=== PATIENT | female | born 1950 | race Caucasian/White ===

== ENCOUNTER 2017-03-30 13:52 | Emergency (ER) | payer OTHER ==
--- NOTE | 2017-03-30 14:18 | PDOC ---
History of Present Illness - General History Source: Patient Exam Limitations: No Limitations - History of Present Illness Initial Comments: 03/30/17 14:25 The patient is a 66 year old female, with a significant past medical history of constipation(with multiple disimpactions), who presents to the emergency department complaining of lower abdominal pain and constipation for approximately 2-3 days. The patient reports her symptoms are similar to when she has had constipation in the past. Patient reports using an Enema prior to presentation, with minimal relief of symptoms. Patient reports she typically gets constipated when she is under a lot of stress. Patient endorses she has been following her [employer]ce Checker's request of increasing fiber intake and taking Miralax. Patient's last normal bowel movement was approximately 2-3 days ago. She denies any associated abdominal distension, nausea, vomiting, or watery stools. She denies any fever or chills. She denies any chest pain, shortness of breath, diaphoresis, or palpitations. She denies any recent travel or sick contacts. Allergies: NKDA Past Surgical History:None reported Social History: Non smoker. No ETOH or recreational drug use. PCP: Dr. Garcia <Heladio Sloan - Last Filed: 03/30/17 16:42> <Etienne Rangel - Last Filed: 03/30/17 16:49> - General Chief Complaint: Constipation Stated Complaint: CONSTIPATION Time Seen by Provider: 03/30/17 14:18 Past History <Heladio Sloan - Last Filed: 03/30/17 16:42> - Past Medical History Disorders: Yes (UTIs recently) - Suicide/Smoking/Psychosocial Hx Smoking History: Never smoked Number of Cigarettes Smoked Daily: 0 Hx Alcohol Use: No <Etienne Rangel - Last Filed: 03/30/17 16:49> - Past Medical History Allergies/Adverse Reactions: Allergies Allergy/AdvReac Type Severity Reaction Status Date / Time Penicillins Allergy Unknown Verified 03/30/17 13:58 Home Medications: Ambulatory Orders Denosumab [Prolia] 60 mg SQ ASDIR 03/30/17 Abd/GI Specific PMHX - Complaint Specific PMHX GERD: No GI Ulcer Disease: No <Etienne Rangel - Last Filed: 03/30/17 16:49> Review of Systems - Review of Systems Able to Perform ROS?: Yes Constitutional: No: Chills, Diaphoresis, Fever, Weakness Respiratory: No: Cough, Shortness of Breath, Wheezing, Hemoptysis Cardiac (ROS): No: Chest Pain, Edema ABD/GI: Yes: Constipated, Other (Abdominal Pain). No: Abdominal Distended, Diarrhea, Nausea, Poor Appetite, Vomiting : No: Dysuria, Frequency, Hematuria, Urgency Musculoskeletal: No: Back Pain, Muscle Pain, Muscle Weakness, Neck Pain Neurological: No: Headache, Numbness, Paresthesia, Weakness Endocrine: No: Symptoms Reported, Unexplained Weight Loss Hematologic/Lymphatic: No: Symptoms Reported All Other Systems: Reviewed and Negative <Heladio Sloan - Last Filed: 03/30/17 16:42> *Physical Exam - Physical Exam General Appearance: Yes: Nourished, Appropriately Dressed. No: Apparent Distress HEENT: positive: EOMI, MATI Neck: positive: Supple. negative: Tender Respiratory/Chest: positive: Lungs Clear, Normal Breath Sounds. negative: Chest Tender, Respiratory Distress Cardiovascular: positive: Regular Rhythm, Regular Rate, S1, S2. negative: JVD, Murmur Gastrointestinal/Abdominal: positive: Normal Bowel Sounds, Flat, Soft. negative : Tender, Organomegaly, Increased Bowel Sounds, Guarding, Rebound, Tenderness Lymphatic: negative: Adenopathy, Tenderness Musculoskeletal: positive: Normal Inspection Extremity: positive: Normal Capillary Refill, Normal Range of Motion, Pelvis Stable Integumentary: positive: Normal Color, Dry, Warm Neurologic: positive: safemaker II-XII NML intact, Fully Oriented, Alert, Normal Mood/ Affect, Normal Response, Motor Strength 5/5 <Heladio Sloan - Last Filed: 03/30/17 16:42> ED Treatment Course - RADIOLOGY Radiograph Interpretation: 03/30/17 16:42 EXAM: XR Abdomen and Pelvis INTERPRETED BY: Dr. Alarcon REVIEWED BY: Dr. Rangel IMPRESSION: Nonspecific bowel gas pattern with no evidence of obstruction. Please correlate clinically. <Heladio Sloan - Last Filed: 03/30/17 16:42> Progress Note - Progress Note Progress Note: Pt was given another fleets enema, had a small bowel movement. Feels slightly better, abdomen soft non tender Will follow up with GI X-ray no obstruction If worsen return to ER <Etienne Rangel - Last Filed: 03/30/17 16:49> *DC/Admit/Observation/Transfer - Attestations Scribe Attestion: 03/30/17 14:29 Documentation prepared by Heladio Sloan, acting as medical staff coordinator for Etienne Rangel MD. <Heladio Sloan - Last Filed: 03/30/17 16:42> - Discharge Dispostion Admit: No <Etienne Rangel - Last Filed: 03/30/17 16:49> Diagnosis at time of Disposition: Constipation Qualifiers: Constipation type: unspecified constipation type Qualified Code(s): K59.00 - Constipation, unspecified - Discharge Dispostion Disposition: HOME Condition at time of disposition: Good - Referrals Referrals: Lucy Garcia [Primary Care Provider] - Hiren Mejias MD [Staff Physician] - - Patient Instructions Printed Discharge Instructions: DI for Constipation Additional Instructions: Fluids, rest, Tylenol Magnesium citrate Continue fleets enema Continue Miralax Follow up with [facility] If worsens in next 48 hrs return to ER - Post Discharge Activity
[2017-03-30 15:03] VITALS: BP 126/85; PULSE 78; TEMP 97.9; BMI 21.2
== END 2017-03-30 17:01 | disposition home or self-care (01) ==
LOC: FER 13:52
DX: K59.00 Constipation, unspecified (principal)
CPT/HCPCS: 74018-TC-FY; 99282-25

== ENCOUNTER 2019-11-26 09:39 | Day surgery (SDC) | payer OTHER ==
[2019-11-19 14:13] VITALS: BMI 23.1
[~2019-11-26 09:39] MED LIST: CYCLOPENTOLATE HCL 1% OPHTH SOLN 2 ML BOTTLE OS SCH; KETOROLAC TROMETHAMINE 0.5% EYE DROP 1 DROP DROPS OS SCH; OFLOXACIN 0.3% OPHTHALMIC SOLUTION 5 ML BOTTLE OS SCH; PHENYLEPHRINE 2.5% OPHTH SOLN 15 ML BOTTLE OS SCH; TROPICAMIDE 1% OPHTH SOLN 15 ML BOTTLE OS SCH
[2019-11-26] MEDS ORDERED: CYCLOPENTOLATE HCL 1% OPHTH SOLN 2 ML BOTTLE ONE (09:53)
[2019-11-26] MEDS ORDERED: OFLOXACIN 0.3% OPHTHALMIC SOLUTION 5 ML BOTTLE ONE (09:53)
[2019-11-26] MEDS ORDERED: PHENYLEPHRINE 2.5% OPHTH SOLN 15 ML BOTTLE ONE (09:54)
[2019-11-26] MEDS ORDERED: KETOROLAC TROMETHAMINE 0.5% EYE DROP 1 DROP DROPS ONE (09:54)
[2019-11-26] MEDS ORDERED: TROPICAMIDE 1% OPHTH SOLN 15 ML BOTTLE ONE (09:54)
--- OUTSIDE RECORDS SUMMARY | 2019-11-26 10:06 | XMS ---
:1950 Author Organization [facility] Care Team Providers Name Role Phone Jitendra Giron MD Unavailable Unavailable Radha, Lucy D Unavailable Unavailable Radha, D Unavailable Unavailable Radha, D Unavailable Unavailable Radha, D Unavailable Unavailable Radha, D Unavailable Unavailable Radha, D Unavailable Unavailable Radha, D Unavailable Unavailable Radha, D Unavailable Unavailable Radha, D Unavailable Unavailable Radha, D Unavailable Unavailable Radha, D Unavailable Unavailable Radha, D Unavailable Unavailable Radha, D Unavailable Unavailable Radha, D Unavailable Unavailable Radha, D Unavailable Unavailable Radha, D Unavailable Unavailable Radha, D Unavailable Unavailable Radha, D Unavailable Unavailable Radha, D Unavailable Unavailable MD Jigar Unavailable Unavailable Re-disclosure Warning The records that you are about to access may contain information from federally- assisted alcohol or drug abuse programs. If such information is present, then the following federally mandated warning applies: This information has been disclosed to you from records protected by federal confidentiality rules (42 CFR part 2). The federal rules prohibit you from making any further disclosure of this information unless further disclosure is expressly permitted by the written consent of the person to whom it pertains or as otherwise permitted by 42 CFR part 2. A general authorization for the release of medical or other information is NOT sufficient for this purpose. The Federal rules restrict any use of the information to criminally investigate or prosecute any alcohol or drug abuse patient.The records that you are about to access may contain highly sensitive health information, the redisclosure of which is protected by Article 27-F of the [facility] Public Health law. If you continue you may haveaccess to information: Regarding HIV / AIDS; Provided by facilities licensed or operated by the [facility] Office of Mental Health; or Provided by the [facility] Office for People With Developmental Disabilities. If such information is present, then the following [facility] mandated warning applies: This information has been disclosed to you from confidential records which are protected by state law. State law prohibits you from making any further disclosure of this information without the specific written consent of the person to whom it pertains, or as otherwise permitted by law. Any unauthorized further disclosure in violation of state law may result in a fine or chcf sentence or both. A general authorization for the release of medical or other information is NOT sufficient authorization for further disclosure. Allergies and Adverse Reactions Type Description Substance Reaction Status Data Source(s ) Drug allergy Epinephryl Borate Epinephryl Borate [facility] Drug allergy epinephrine epinephrine [facility] Drug allergy Penicillins Penicillins UNKNOWN [facility] Encounters Encounter Providers Location Date Indications Data Source(s ) Outpatient Attender: Lucy 08/16/2019 [facility] 09:55:00 AM Hospital EDT Outpatient Attender: Lucy 02/05/2019 [facility] 12:34:00 PM Hospital EST Outpatient Attender: Lucy 10/12/2018 [facility] 11:12:00 AM Hospital EDT Outpatient Attender: Jitendra 09/13/2018 M81.0 Age-related Wh júnior Giron MD 12:47:00 PM osteoporosis Hospital EDT without current pat M81.0 Age-related osteoporosis without c urrent pat Outpatient Attender: Lucy 07/05/2018 12:47:00 [facility]CRE[facility] EDT Hospital SCREENING Outpatient Attender: Nathaly 03/30/2018 02:39:00 PM [facility] Jigar DO Insurance Providers Payer name Policy type Policy ID Covered Covered constitution party's Policy P jann / Coverage constitution party ID relationship to [employer] Inf ormation type spear [employer] [id number] SP [id number] MEDICARE [employer] MCR [id number] Problems, Conditions, and Diagnoses Code Display Name Description Problem Type Effective Dates Data Source(s) Z78.0 Asymptomatic Z78.0 Diagnosis 09/13/2018 [place] [facility]opausal state 12:47:00 PM EDT Hos pital M81.0 Age-related M81.0 Diagnosis 09/13/2018 [facility] osteoporosis without 12:47:00 PM EDT Hospital current pathological fracture R92.2 Inconclusive R92.2 Diagnosis 07/05/2018 [place] mammogram 12:47:00 PM EDT Hospital Z12.31 Encounter for Z12.31 Diagnosis 07/05/2018 [place] [facility] screening mammogram 12:47:00 PM EDT [facility] Results ID Date Data Source [id number] 11/22/2019 12:38:00 PM EDT [facility] Name Value Range Interpretation Description Data Sup porting Code Source(s) Document(s ) SARS [facility] coronavirus 2 RNA This lab was ordered by CANDACE HODGSON and reported by [facility]. Procedure
[2019-11-26 10:15] VITALS: BP 131/78; PULSE 76; TEMP 97.7
== END 2019-11-26 11:05 | disposition home or self-care (01) ==
LOC: FASU 09:39
PROVIDERS: ATTEND Ophthalmology
PROC: 08RK3JZ Replacement of Left Lens with Synthetic Substitute, Percutaneous Approach (ICD-10-PCS; principal; 2019-11-26)
DX: H26.9 Unspecified cataract (principal); Z53.09 Procedure and treatment not carried out because of other contraindication